=== PATIENT | female | born 1990 | race Caucasian/White ===

== ENCOUNTER 2016-09-05 17:57 | Emergency (ER) | payer OTHER ==
[2016-09-05 18:12] VITALS: O2SAT 99
--- NOTE | 2016-09-05 18:41 | EDPHY ---
H & P Smoking Status: Never smoked Time Seen by Provider: 09/05/16 18:10 HPI/ROS: CHIEF COMPLAINT: Fever, swollen glands HISTORY OF PRESENT ILLNESS: 26-year-old female presents to the emergency department complaining of subjective fevers and swollen glands since yesterday morning. Patient states that she woke up with the swelling and was concerned about possible infection. She initially went to urgent care and was diagnosed with a "salivary gland infection." Her symptoms persisted and went to see the primary care provider today and was started on clindamycin. She also saw a dentist today who did x-rays of her teeth to make sure that that was not the root of the cause. Her dentist talked with Dr. Deep Diane who recommended CT imaging and possibly admission. Patient tells me that she has partially immunized. She did have a negative Monospot and they tested her for months at the primary care office. She has not started the clindamycin that was prescribed to her. She has had subjective fevers and chills. She denies dysphagia. She did take some ibuprofen and she feels that the swelling has gone down some. She denies any other neck pain. Denies rash. REVIEW OF SYSTEMS: Constitutional: Subjective fevers, chills Eyes: No double or blurry vision. ENT: No sore throat. Respiratory: No cough, no shortness of breath. Cardiac: No chest pain. Gastrointestinal: No abdominal pain, vomiting or diarrhea. Genitourinary: No dysuria. Musculoskeletal: No neck or back pain. Skin: No rashes. Neurological: No headache. (Zara Forrest) Past Medical/Surgical History: Partially immunized including 1 tetanus shot given when she was 6 years old ( Adriane,Zara M) Social History: Lives in [place] (Adriane,Zara M) Physical Exam: General Appearance: Alert, no distress. Temperature 36.9, heart rate 82, no respiratory distress. Eyes: Pupils equal and round. Extraocular motions are all intact. ENT: Mouth: Mucous membranes moist. Teeth appear to be in good repair. She has a partially erupted left lower wisdom tooth and her right upper 1 is not seen. There is no gum swelling. No evidence of abscess. She has bilateral submandibular swelling just below the angle of the mandible. It is tender to palpate. There is no sublingual swelling noted. No pain or swelling noted just under her chin. Neck is supple. Respiratory: No wheezing, rhonchi, or rales, lungs are clear to auscultation. Cardiovascular: Regular rate and rhythm. Gastrointestinal: Abdomen is soft and nontender, no masses, no rebound or guarding, bowel sounds normal. Neurological: Alert and oriented x 3, cranial nerves II through XII grossly intact Skin: Warm and dry, no rashes. Musculoskeletal: Nontender to palpate along the cervical, thoracic or lumbar spine. Neck is supple. Extremities: Full range of motion and no peripheral edema. Psychiatric: Patient is oriented X 3, there is no agitation. (Zara Forrest) Constitutional: Initial Vital Signs Temperature (C) 36.9 C 09/05/16 18:10 Heart Rate 82 09/05/16 18:10 Respiratory Rate 18 09/05/16 18:10 Blood Pressure 131/81 H 09/05/16 18:10 O2 Sat (%) 99 09/05/16 18:10 O2 Delivery Mode Room Air Allergies/Adverse Reactions: No Known Allergies Allergy (Unverified 09/05/16 18:10) Home Medications: Medication Instructions Recorded Amoxicillin/Clavulanate Pot 875 mg PO BID #20 tab 09/05/16 [Augmentin 875 mg tab] Dexamethasone [Decadron] 8 mg PO DAILY #2 tab 09/05/16 Medical Decision Making - Diagnostics Imaging: Discussed imaging studies w/ deicer repairer pneumatic Radiologist ED Course/Re-evaluation: 26-year-old female presents to the emergency department feeling feverish in complaining of submandibular swelling since yesterday. Laboratory studies reveal white blood cell count of over 18,000. Her chemistries were normal. I discussed the pros and cons of CT imaging including radiation exposure and the patient agrees with CT scan. I also spoke with her mother via phone. CT imaging reveals no evidence of abscess or stone. No free air or free fluid. Patient will be treated with oral Augmentin this was in lieu of the clindamycin that was prescribed for her since Augmentin can be dose twice daily. Patient was also given IV Decadron, oral ibuprofen and her 1st dose of Augmentin 875 mg. I spoke with the on-call physician talent acquisition assistant with ENT, Jason, who will see this patient in follow-up. Patient was instructed to return if she develops fever, difficulty swallowing, or any other concerns. The case was discussed with Dr. Jeffy Sidhu, secondary supervising physician, who did not directly evaluate the patient but agrees with treatment and plan. ( Zara Forrest) I did not see this patient while she was in the emergency department. However her care was discussed with the PA while the patient was in the department. I agree with treatment plan and management (Jeffy Sidhu) Differential Diagnosis: Including but not limited to abscess, mumps, retained stone, parotitis, submandibular abscess, submandibular infection (Estefany Forrestrina Cassie) - Data Points Laboratory Results: Laboratory Results 09/05/16 18:35 09/05/16 18:35 Medications Given: Discontinued Medications Amoxicillin/Clavulanate Potassium (Augmentin 875mg) 875 mg PO EDNOW ONE PRN Reason: Protocol Stop: 09/05/16 21:24 Last Admin: 09/05/16 21:30 Dose: 875 mg Amoxicillin/Clavulanate Potassium (Augmentin 875mg) 875 mg PO EDNOW ONE PRN Reason: Protocol Stop: 09/05/16 22:05 Last Admin: 09/05/16 22:15 Dose: 875 mg Dexamethasone (Decadron Injection) 10 mg IVP EDNOW ONE Stop: 09/05/16 21:23 Last Admin: 09/05/16 21:30 Dose: 10 mg Sodium Chloride (Ns) 1,000 mls @ 0 mls/hr IV ONCE ONE PRN Reason: Wide Open Stop: 09/05/16 20:16 Last Admin: 09/05/16 20:41 Dose: 1,000 mls Ibuprofen (Motrin) 600 mg PO EDNOW ONE Stop: 09/05/16 22:09 Last Admin: 09/05/16 22:15 Dose: 600 mg Departure - Departure Disposition: Home, Routine, Self-Care Clinical Impression: Submandibular gland swelling Condition: Good Instructions: Amoxicillin/Clavulanate Potassium (By mouth), Sialoadenitis (ED) Additional Instructions: Augmentin twice daily for 10 days. Decadron was given to in the emergency department. You will take 1 more dose of this tomorrow. Return to the emergency department if you developed difficulty breathing or swallowing, recurring fever, or if you feel worse in any way. Call the primary care provider to check to make sure that mumps test/titer was drawn. Referrals: Eliot Ramirez MD [Medical Doctor] - 1-2 days without fail (ENT on-call) Stand Alone Forms: Work Excuse Prescriptions: Amoxicillin/Clavulanate Pot [Augmentin 875 mg tab] 875 mg PO BID #20 tab Dexamethasone [Decadron] 8 mg PO DAILY #2 tab
[2016-09-05 19:08] LABS: % IMMATURE GRANULYOCYTES 0.5 % (0.0-1.1); ABSOLUTE IMMATURE GRANULOCYTES 0.09 10^3/uL (0.00-0.10); ADD DIFF? NO; ADD MORPH? NO; ADD SCAN? NO; ATYPICAL LYMPHOCYTE FLAG 0 (0-99); FRAGMENT RBC FLAG 0 (0-99); HEMATOCRIT 40.5 % (38.0-47.0); HEMOGLOBIN 13.4 g/dL (12.6-16.3); LEFT SHIFT FLG 10 (0-99); LIPEMIA HEMOLYSIS FLAG 80 (0-99); MEAN CELL HEMOGLOBIN 30.5 pg (27.9-34.1); MEAN CELL HEMOGLOBIN CONCENTR. 33.1 g/dL (32.4-36.7); MEAN PLATELET VOLUME 10.2 fL (8.7-11.7); PLATELET CLUMPS FLAG 0 (0-99); PLATELET COUNT 246 10^3/uL (150-400); RED CELL DISTRIBUTION WIDTH 12.9 % (11.5-15.2)
[2016-09-05 19:14] LABS: ANION GAP 8 mEq/L (8-16); CALCIUM 9.4 mg/dL (8.5-10.4); CARBON DIOXIDE 25 mEq/l (22-31); CHLORIDE 104 mEq/L (97-110); CREATININE 0.7 mg/dL (0.6-1.0); GLOMERULAR FILTRATION RATE > 60; GLUCOSE 91 mg/dL (70-100); POTASSIUM 3.8 mEq/L (3.5-5.2); SODIUM 137 mEq/L (134-144)
[2016-09-05 19:16] VITALS: TEMP 98.6
[2016-09-05 19:18] LABS: BHCG-QUALITATIVE NEGATIVE
[2016-09-05 19:19] LABS: MONO TEST NEGATIVE (NEGATIVE)
[2016-09-05] MEDS ORDERED: IOPAMIDOL (ISOVUE-300) 100 ML BTL IV ONE (19:45)
[2016-09-05] MEDS ORDERED: NS 1,000 ML IV ONE (20:15)
[2016-09-05 20:42] VITALS: RESP 16
[2016-09-05] MEDS ORDERED: DEXAMETHASONE 10 MG/ML VIAL IVP ONE (21:22)
[2016-09-05] MEDS ORDERED: AMOXICILLIN/CLAVULANATE POT 875/125 MG TAB PO ONE ×2 (21:23→22:04)
[2016-09-05] MEDS ORDERED: IBUPROFEN 600 MG TAB PO ONE ×2 (22:08)
[2016-09-05 22:22] VITALS: BP 122/82; PULSE 85
--- NOTE | 2016-09-10 23:49 | EDPHY ---
ED Progress Note Narrative: 11:48 p.m.: I spoke with the patient via phone and the patient is developing vaginal yeast infection including vaginal irritation, white discharge, and itching after taking the prescribed Augmentin. I called her [facility] pharmacy at and left a message for prescription Diflucan 150 mg dispense 2 tablets taking 1 now and may repeat after completion of antibiotics in 1 week.
== END 2016-09-05 22:26 | disposition home or self-care (01) ==
DX: K11.8 Other diseases of salivary glands (principal)
CPT/HCPCS: 96374; Q9967